=== PATIENT | male | born 1975 | race Caucasian/White ===

== ENCOUNTER 2017-01-31 15:05 | Emergency (ER) | payer SELFPAY ==
[2017-01-31] MEDS ORDERED: Sodium Chloride 0.9% 10 ML Syringe FLUSH PRN (15:34)
[2017-01-31] MEDS ORDERED: Iopamidol 612 MG/ML 150 ML Bottle IV SCH (15:45)
--- NOTE | 2017-01-31 16:06 | EDM.PDOC ---
[id number] 01/31/17 15:10 Source: Reports: Patient, EMS History Limitations: Reports: No limitations - History of Present Illness INITIAL COMMENTS - FREE TEXT/NARRATIVE: 41-year-old male was working at a local business when a pile of wooden pallets fell off a front chip unloader and fell on top of him. He was struck in several places on top of the head, left shoulder, left foot, on his back and neck. He was told to lay still and the ambulance was called. He had no loss of consciousness, no active bleeding. He was backboarded and C-collared and transported to the emergency room. Vitals were stable. His chief complaint was left foot pain although he was difficult to assess because he said he "hurt everywhere". he denied any shortness of breath or pain with breathing, chest pain, abdominal pain, but said his head, neck, back, and legs hurt. Occurred When: just prior to arrival Occurred Where: work Method of Injury: direct blow Severity: moderate Pain/Injury Location: Reports: head, face, neck, back, upper extremity, left, lower extremity, left Consciousness: Reports: no loss of consciousness Associated Symptoms: Reports: chest pain, neck pain, other (Back pain). Denies : abdominal pain Allergies/ADRs: Allergies codeine Adverse Reaction (Verified 01/31/17 16:03) Diarrhea tramadol HCl [From [facility]] Adverse Reaction (Verified 01/31/17 16:03) Vomiting Home Medications: Ambulatory Orders Ibuprofen 800 mg PO TID 01/12/15 [Confirmed 01/31/17] Past Medical History HEENT History: Reports: Impaired vision Musculoskeletal History: Reports: Back pain, chronic Psychiatric History: Reports: Depression - Infectious Disease History Infectious Disease History: Reports: Chicken pox, Meningitis - Past Surgical History HEENT Surgical History: Reports: Oral surgery GI Surgical History: Reports: Hernia, inguinal, Hernia repair/other Social & Family History - Tobacco Use Smoking Status *Q: Current Every Day Smoker Years of Tobacco use: 32 Packs/Tins Daily: 1 - Recreational Drug Use Recreational Drug Use: No Review of Systems - Review of Systems Review Of Systems: See Below Constitutional: Denies: fever Eyes: Reports: no symptoms Ears: Reports: no symptoms Respiratory: Denies: Shortness of Breath, Cough GI/Abdominal: Denies: Abdominal pain, Diarrhea, Nausea, Vomiting Genitourinary: Reports: no symptoms Skin: Reports: other (Several abrasions on the scalp and face and a superficial abrasion on the left knee) Neurological: Denies: Headache, Trouble Speaking ED EXAM, TRAUMA (MAJOR/MULTI) - Physical Exam Exam: See Below Text/Narrative:: Initial [place] Coma Scale was 15. Vitals were stable. No increased respiratory effort, neurologically he was oriented and normal and there was no active bleeding Exam Limited By: No limitations General Appearance: alert, anxious Head: other (Patient is a small abrasion on his right forehead, just lateral to the right eye and a few small contusions on the posterior scalp) Eyes: bilateral eye: EOMI, normal inspection (Except for the small abrasion lateral to the right), PERRL Ears: normal TMs Nose: normal inspection Throat/Mouth: Normal inspection Neck: painful range of motion, paraspinous muscle tender (Patient is tender to palpation over the lower neck especially on the left side), other (Palpation tenderness seems to be somewhat worse on the left side) Cardiovascular: regular rate, rhythm Respiratory/Chest: no respiratory distress, lungs clear GI/Abdominal: soft, non tender Back: other (On logroll visibly there was no evidence of injury. He did complain of tenderness however with percussion over the whole spine) Extremities: other (He does have swelling and slight deformity of the forefoot on the left side. Very tender to palpation.) Neurologic: no motor/sensory deficits Skin: Normal color, Other (Small superficial abrasion on the left knee, right lateral eyebrow and right forehead) - Shwetha Coma Score Best Eye Response (Shwetha): (4) open spontaneously Best Verbal Response (Shwetha): (5) oriented Best Motor Response (Shwetha): (6) obeys commands Course - Orders/Labs/Meds Orders: Active Orders 24 hr Category Date Time Status Cervical Spine wo Cont [CT] Stat Exams 01/31/17 15:24 Taken Chest Abdomen Pelvis w Cont [CT] Stat Exams 01/31/17 15:24 Taken Foot Comp Min 3V Lt [CR] Stat Exams 01/31/17 15:25 Taken Head wo Cont [CT] Stat Exams 01/31/17 15:24 Taken DME for Discharge [COMM] Stat Oth 01/31/17 17:37 Ordered Labs: Laboratory Tests 01/31/17 01/31/17 Range/Units 15:25 15:25 WBC 9.0 (4.5-11.0) K/uL RBC 4.98 (4.30-5.90) M/uL Hgb 15.4 H (12.0-15.0) g/dL Hct 44.0 (40.0-54.0) % MCV 88 (80-98) fL MCH 31 (27-31) pg MCHC 35 (32-36) % Plt Count 225 (150-400) K/uL Neut % (Auto) 63 (36-66) % Lymph % (Auto) 27 (24-44) % [place] % (Auto) 7 H (2-6) % Eos % (Auto) 1 L (2-4) % Baso % (Auto) 2 H (0-1) % Sodium 145 (140-148) mmol/L Potassium 4.1 (3.6-5.2) mmol/L Chloride 107 (100-108) mmol/L Carbon Dioxide 27 (21-32) mmol/L Anion Gap 11.0 (5.0-14.0) mmol/L BUN 12 (7-18) mg/dL Creatinine 0.9 (0.8-1.3) mg/dL Est Cr Clr Drug Dosing TNP Estimated GFR (MDRD) > 60 (>60) Glucose 114 H (74-106) mg/dL Calcium 8.8 (8.5-10.1) mg/dL Total Bilirubin 0.4 (0.2-1.0) mg/dL AST 19 (15-37) U/L ALT 28 (12-78) U/L Alkaline Phosphatase 76 (46-116) U/L Total Protein 6.9 (6.4-8.2) g/dL Albumin 3.7 (3.4-5.0) g/dL Globulin 3.2 (2.3-3.5) g/dL Albumin/Globulin Ratio 1.2 (1.2-2.2) Meds: Medications Discontinued Medications Generic Name Dose Route Start Last Admin Trade Name Freq PRN Reason Stop Dose Admin Hydromorphone HCl 0.5 mg 01/31/17 18:11 Dilaudid IVPUSH 01/31/17 18:12 ONETIME ONE Sodium Chloride 76 mls @ 3 mls/sec 01/31/17 15:34 04/26/17 15:57 Normal Saline IV 01/31/17 15:35 3 mls/sec ONETIME ONE Administration Iopamidol 120 ml 01/31/17 15:45 01/31/17 15:57 Isovue-300 (61%) IV 150 ml . DIRECTED ANDREINA Administration Sodium Chloride 10 ml 01/31/17 15:34 01/31/17 15:57 Saline Flush FLUSH 10 ml ONETIME PRN Administration PER RADIOLOGY PROTOCOL - Re-Assessments/Exams Free Text/Narrative Re-Assessment/Exam: 01/31/17 17:05 Because of the diffuse injuries and symptoms the patient was sent back for a CT scan of the head and neck without contrast, along with a chest and abdomen and pelvis with IV contrast. CBC and CMP were obtained. An isolated foot x-ray of the left foot was obtained. 01/31/17 18:[address] was negative, neck CT revealed a nondisplaced fracture of the left inferior articular process of C6. Chest and abdomen CT were unremarkable. Labs were normal. Foot x-ray revealed a Peoples fracture and what appears to be a comminuted navicular fracture. The patient was placed in a firm cervical collar after consultation with neurosurgery, but no acute treatment was needed for the cervical fracture. His foot was placed in a cam walker, he was fitted with crutches and given an extra 0.5 mg of Dilaudid IV for pain control. I also discussed his condition with orthopedics in [place] and they will recheck his foot tomorrow. He was discharged with 10 additional [place] for pain control until tomorrow, and is to keep the boot on and remain nonweightbearing and recheck with Dr. Morelos at [facility] in [place] tomorrow. Departure - Departure Time of Disposition: 19:11 Disposition: Home, Self-Care 01 Condition: fair Clinical Impression: C6 cervical fracture Qualifiers: Encounter type: initial encounter Fracture type: closed Fracture alignment: nondisplaced Closed navicular fracture of left foot Qualifiers: Encounter type: initial encounter Fracture alignment: displaced Qualified Code( s): S92.252A - Displaced fracture of navicular [scaphoid] of left foot, initial encounter for closed fracture Peoples fracture Qualifiers: Encounter type: initial encounter Fracture type: closed Instructions: Cervical Spine Fracture, Stable Referrals: PCP,None [Primary Care Provider] - Forms: ED Department Discharge Care Plan Goals: Use crutches and avoid any weight bearing with the left foot. Wear cervical collar until recheck is established. Dr. Morelos at the [facility] orthopedic clinic in [place] agreed to see you tomorrow regarding rechecking your foot. Ibuprofen or naproxen should help your pain, and add stronger pain medications as prescribed. Elevate foot if possible. - My Orders Last 24 Hours: My Active Orders 01/31/17 15:24 Cervical Spine wo Cont [CT] Stat Chest Abdomen Pelvis w Cont [CT] Stat Head wo Cont [CT] Stat 01/31/17 15:25 Foot Comp Min 3V Lt [CR] Stat 01/31/17 17:37 DME for Discharge [COMM] Stat - Assessment/Plan Last 24 Hours: My Active Orders 01/31/17 15:24 Cervical Spine wo Cont [CT] Stat Chest Abdomen Pelvis w Cont [CT] Stat Head wo Cont [CT] Stat 01/31/17 15:25 Foot Comp Min 3V Lt [CR] Stat 01/31/17 17:37 DME for Discharge [COMM] Stat
[2017-01-31] MEDS ORDERED: HYDROmorphone 0.5 MG/0.5 ML Syringe IVPUSH ONE ×2 (18:11→18:18)
--- NOTE | 2017-02-01 09:15 | CR ---
Left foot Findings: There is a transverse fracture through the proximal metaphysis of the fifth metatarsal. Th ere is no significant displacement. There is a mildly displaced fracture involving the medial aspect of the navicular. There is degenerative disease throughout the tarsometatarsal joints. Impression: 1. Fractures of the navicular as well as proximal fifth metatarsal.
== END 2017-01-31 19:11 | disposition home or self-care (01) ==
LOC: JP.ED 15:05
DX: S12.501A Unspecified nondisplaced fracture of sixth cervical vertebra, initial encounter for closed fracture (principal); S92.252A Displaced fracture of navicular [scaphoid] of left foot, initial encounter for closed fracture; S92.352A Displaced fracture of fifth metatarsal bone, left foot, initial encounter for closed fracture; S80.212A Abrasion, left knee, initial encounter; S00.211A Abrasion of right eyelid and periocular area, initial encounter; S00.81XA Abrasion of other part of head, initial encounter; W20.8XXA Other cause of strike by thrown, projected or falling object, initial encounter; Y92.512 Supermarket, store or market as the place of occurrence of the external cause; Y99.0 Civilian activity done for income or pay; F32.9 Major depressive disorder, single episode, unspecified; J98.11 Atelectasis; J43.8 Other emphysema; F17.210 Nicotine dependence, cigarettes, uncomplicated; Z79.1 Long term (current) use of non-steroidal anti-inflammatories (NSAID); Z88.5 Allergy status to narcotic agent
CPT/HCPCS: 36415; 70450; 71260; 72125; 73630; 74177; 80053; 85025; J1170; J7030; J7050; 99284; 99284-25